=== PATIENT | female | born 1940 | race Native Hawaiian/Other Pacific Islander ===

== ENCOUNTER 2016-08-20 15:00 | Outpatient (CLI) | payer OTHER ==
[~2016-08-20 15:00] MED LIST: CADUET10 MG/10 M PO; CLONIDINE0.2 MG PO; GLIP10TA55 PO; LEVO0.0529 PO; METO50TA27 PO
[2016-08-20 15:16] LABS: POTASSIUM 4.5 mmol/L (3.6-5.2)
[2016-08-20 15:21] LABS: PLATELET COUNT 391 K/uL (152-353)
== END 2016-08-20 19:31 | disposition home or self-care (01) ==
LOC: LAB 15:00
PROVIDERS: Nurse Practitioner Family
DX: I10 Essential (primary) hypertension (principal); E03.8 Other specified hypothyroidism; E11.9 Type 2 diabetes mellitus without complications; E78.4 Other hyperlipidemia
CPT/HCPCS: 80053; 80061; 82306; 82607; 83036; 84439; 84443; 85027